=== PATIENT | female | born 1955 | race Caucasian/White ===

== ENCOUNTER → 2017-04-29 | Outpatient (CLI) | payer OTHER, BC | LOC: MC.RAD 07:54 | DX: Z12.31 Encounter for screening mammogram for malignant neoplasm of breast (principal) ==

== ENCOUNTER → 2018-06-22 | Outpatient (CLI) | payer OTHER, BC | LOC: MC.RAD 10:35 | DX: Z12.31 Encounter for screening mammogram for malignant neoplasm of breast (principal); Z98.82 Breast implant status ==

== ENCOUNTER → 2019-08-24 | Outpatient (CLI) | payer OTHER, BC | LOC: MC.RAD 14:30 | DX: Z12.31 Encounter for screening mammogram for malignant neoplasm of breast (principal); N63.13 Unspecified lump in the right breast, lower outer quadrant; Z98.82 Breast implant status ==

== ENCOUNTER → 2019-08-28 | Outpatient (CLI) | payer OTHER, BC | LOC: MC.RAD 07:45 | DX: N60.01 Solitary cyst of right breast (principal); Z98.82 Breast implant status ==

== ENCOUNTER → 2020-03-07 | Outpatient (CLI) | payer OTHER | LOC: MC.RAD 09:30 | DX: R92.8 Other abnormal and inconclusive findings on diagnostic imaging of breast (principal); Z98.82 Breast implant status ==

== ENCOUNTER → 2020-09-12 | Outpatient (CLI) | payer OTHER | LOC: MC.RAD 08:00 | DX: N64.89 Other specified disorders of breast (principal); Z98.82 Breast implant status ==

== ENCOUNTER → 2021-01-15 | Outpatient (CLI) | payer MEDICARE, OTHER | LOC: MC.RAD 13:58 | DX: N60.01 Solitary cyst of right breast (principal) ==

== ENCOUNTER → 2021-11-04 | Outpatient (CLI) | payer MEDICARE, OTHER | LOC: MC.RAD 11:39 | DX: Z12.31 Encounter for screening mammogram for malignant neoplasm of breast (principal) ==

== ENCOUNTER → 2022-12-30 | Outpatient (CLI) | payer MEDICARE, OTHER | LOC: MC.RAD 13:15 | DX: Z12.31 Encounter for screening mammogram for malignant neoplasm of breast (principal) ==

== ENCOUNTER → 2024-01-20 | Outpatient (CLI) | payer MEDICARE, OTHER | LOC: MC.RAD 10:47 | DX: Z12.31 Encounter for screening mammogram for malignant neoplasm of breast (principal); N64.89 Other specified disorders of breast ==